=== PATIENT | female | born 1990 | race Two or more races ===

== ENCOUNTER 2023-09-27 16:41 | Emergency (ER) | payer SELFPAY ==
[~2023-09-27] VITALS: Ht 157.5 cm; Wt 52.3 kg
[2023-09-27 16:51] VITALS: TEMP 98
[2023-09-27 16:54] VITALS: BP 110/68; PULSE 115; RESP 18
[2023-09-27 17:13] LABS: BASOPHILS % (AUTO) 0.6 % (0.0-2.0); EOSINOPHILS % (AUTO) 0.6 % (1.0-6.0); HEMATOCRIT 40.5 % (36-46); LYMPHOCYTES # (AUTO) 2.4 K/uL (1.0-4.8); LYMPHOCYTES % (AUTO) 30.7 % (22.0-44.0); MEAN CORPUSCULAR HEMOGLOBIN 26.5 pg (26.0-34.0); MEAN CORPUSCULAR HGB CONC 32.2 G/dL (31.0-37.0); MEAN CORPUSCULAR VOLUME 83 fL (80-100); MONOCYTES # (AUTO) 0.5 K/uL (0.1-1.0); MONOCYTES % (AUTO) 6.7 % (2.0-9.0); NEUTROPHILS # (AUTO) 4.8 K/uL (1.8-7.7); NEUTROPHILS % (AUTO) 61.4 % (40.0-70.0); PLATELET COUNT (AUTO) 375 K/uL (150-450); RED BLOOD CELL COUNT(AUTO) 4.91 MIL/uL (4.00-5.20); RED CELL DISTRIBUTION WIDTH 13.6 % (11.5-14.5); WHITE BLOOD COUNT (AUTO) 7.8 K/uL (4.5-11.0)
[2023-09-27 17:23] LABS: ANION GAP 8 mmol/L (8-16); CALCIUM, TOTAL 9.7 mg/dL (8.8-10.5); CARBON DIOXIDE 28 mmol/L (22-29); CHLORIDE 99 mmol/L (98-107); CREATININE 0.69 mg/dL (0.60-1.30); GLOMERULAR FILTR. RATE CALC > 60 mL/min (>60); GLUCOSE,RANDOM 94 mg/dL (70-110); POTASSIUM 3.6 mmol/L (3.5-5.1); SODIUM SERUM 135 mmol/L (136-145); UREA NITROGEN, BLOOD 10 mg/dL (7-18)
[2023-09-27 17:29] LABS: ALANINE AMINOTRANSFERASE 23 U/L (12-78); ALBUMIN 4.5 g/dL (3.4-5.0); ALKALINE PHOSPHATASE 102 U/L (46-116); ASPARTATE AMINOTRANSFERASE 20 U/L (15-37); BILIRUBIN,TOTAL 0.2 mg/dL (0.1-1.0); TOTAL PROTEIN, SERUM 8.1 g/dL (6.4-8.2)
[2023-09-27 17:43] LABS: ALCOHOL, BLOOD (SERUM) < 3 mg/dL (0-10)
== END 2023-09-27 17:45 | disposition left against medical advice (07) ==
LOC: EMS 16:43
DX: R45.1 Restlessness and agitation (principal); R73.9 Hyperglycemia, unspecified; F15.10 Other stimulant abuse, uncomplicated
CPT/HCPCS: 99283; 80053; 84703; 85025; 36415; G0480

== ENCOUNTER 2023-09-29 10:00 | Inpatient (IN) | payer MEDICAID ==
[~2023-09-29] VITALS: Ht 157.5 cm; Wt 47.6 kg
[2023-09-29 11:07] LABS: COVID AG,FIA SOURCE NPH
[2023-09-29 11:54] LABS: BASOPHILS % (AUTO) 0.6 % (0.0-2.0); EOSINOPHILS % (AUTO) 0.2 % (1.0-6.0); HEMATOCRIT 40.7 % (36-46); HEMOGLOBIN 13.1 g/dL (12.0-16.0); LYMPHOCYTES # (AUTO) 1.8 K/uL (1.0-4.8); LYMPHOCYTES % (AUTO) 22.3 % (22.0-44.0); MEAN CORPUSCULAR HEMOGLOBIN 26.5 pg (26.0-34.0); MEAN CORPUSCULAR HGB CONC 32.1 G/dL (31.0-37.0); MEAN CORPUSCULAR VOLUME 82 fL (80-100); MONOCYTES # (AUTO) 0.5 K/uL (0.1-1.0); MONOCYTES % (AUTO) 5.9 % (2.0-9.0); NEUTROPHILS # (AUTO) 5.7 K/uL (1.8-7.7); PLATELET COUNT (AUTO) 349 K/uL (150-450); RED BLOOD CELL COUNT(AUTO) 4.95 MIL/uL (4.00-5.20); RED CELL DISTRIBUTION WIDTH 13.9 % (11.5-14.5); WHITE BLOOD COUNT (AUTO) 8.1 K/uL (4.5-11.0)
[2023-09-29 12:04] LABS: ANION GAP 8 mmol/L (8-16); CALCIUM, TOTAL 9.6 mg/dL (8.8-10.5); CARBON DIOXIDE 27 mmol/L (22-29); CHLORIDE 101 mmol/L (98-107); CREATININE 0.66 mg/dL (0.60-1.30); GLOMERULAR FILTR. RATE CALC > 60 mL/min (>60); GLUCOSE,RANDOM 75 mg/dL (70-110); POTASSIUM 3.8 mmol/L (3.5-5.1); SODIUM SERUM 136 mmol/L (136-145); UREA NITROGEN, BLOOD 12 mg/dL (7-18)
[2023-09-29 12:05] LABS: ALCOHOL, BLOOD (SERUM) < 3 mg/dL (0-10)
[2023-09-29 12:18] LABS: ALANINE AMINOTRANSFERASE 22 U/L (12-78); ALBUMIN 4.1 g/dL (3.4-5.0); ALKALINE PHOSPHATASE 89 U/L (46-116); ASPARTATE AMINOTRANSFERASE 40 U/L (15-37); BILIRUBIN,TOTAL 0.3 mg/dL (0.1-1.0); HCG,QUANTITATIVE < 1 mIU/mL (0-6); TOTAL PROTEIN, SERUM 7.6 g/dL (6.4-8.2)
[2023-09-29 12:21] LABS: SARS-COV2 (COVID) ANTIGEN,FIA Negative (Negative)
[2023-09-29] MEDS: QUEtiapine FUMARATE 100 MG TABLET PO PRN (13:50)
[2023-09-29] MEDS: LORazepam 2 MG TABLET PO PRN (13:50)
[2023-09-29 14:53] VITALS: BP 116/81; PULSE 107; RESP 18; TEMP 97.8; O2SAT 97
[2023-09-29] MEDS ORDERED: INFLUENZA VIRUS VACCINE QVS 2023-24 (6MO+)/PF 60 MCG/0.5 ML SYRINGE IM. ONE (15:30)
[2023-09-29 21:02] VITALS: BP 121/80; PULSE 98; RESP 18; TEMP 97.9
[2023-09-30] MEDS ORDERED: ONDANSETRON HCL 4 MG TABLET PO PRN (07:15)
[2023-09-30] MEDS ORDERED: MAG HYDROX/ALUMINUM HYD/SIMETH ES 30 ML SUSPENSION UDCUP PO PRN (07:15)
[2023-09-30] MEDS ORDERED: ACETAMINOPHEN 325 MG TABLET PO PRN (07:15)
[2023-09-30] MEDS ORDERED: CloNIDine HCL 0.1 MG TABLET PO PRN (07:15)
[2023-09-30] MEDS ORDERED: PETROLATUM,WHITE 28 GM JELLY TP PRN (07:15)
[2023-09-30] MEDS ORDERED: DOCUSATE SODIUM 100 MG CAPSULE PO PRN (07:15)
[2023-09-30] MEDS ORDERED: IBUPROFEN 400 MG TABLET PO PRN (07:15)
[2023-09-30] MEDS ORDERED: LOPERAMIDE HCL 2 MG CAPSULE PO PRN (07:15)
[2023-09-30] MEDS ORDERED: MAGNESIUM HYDROXIDE SUSPENSION 30 ML UDCUP PO PRN (07:15)
[2023-09-30] MEDS ORDERED: GuaiFENesin/D-METHORPHAN [SUGAR-FREE] 200-20MG/10 ML SYRUP UDCUP PO PRN (07:15)
[2023-09-30] MEDS ORDERED: ALBUTEROL SULFATE HFA 90 MCG/PUFF 8 GM INHALER IH PRN (07:15)
[2023-09-30] MEDS: ARIPiprazole 10 MG TABLET PO SCH (09:51)
[2023-09-30 10:28] VITALS: BP 106/72; PULSE 99; RESP 18; TEMP 98.1; O2SAT 100
[2023-10-01 00:53] VITALS: BP 97/57; PULSE 97; RESP 18; TEMP 98.4; O2SAT 100
[2023-10-01 09:44] LABS: HEMOGLOBIN A1C 5.3 % (3.8-5.6)
[2023-10-01 09:49] LABS: THYROID STIMULATING HORMONE 0.29 uIU/mL (0.36-3.74)
[2023-10-01 10:06] VITALS: BP 101/64; PULSE 90; RESP 18; TEMP 97.9; O2SAT 100
[2023-10-01] MEDS: ZOLPIDEM TARTRATE 10 MG TABLET PO PRN (20:21)
[2023-10-01 21:05] VITALS: BP 101/64; PULSE 95; RESP 16; TEMP 97.5; O2SAT 98
[2023-10-02 08:42] LABS: CHOL/HDL RATIO 2.5 (3.9-5.7)
[2023-10-02] MEDS: NICOTINE 14 MG/24 HOUR PATCH TD PRN (09:29)
[2023-10-02 14:46] VITALS: RESP 16; TEMP 98
[2023-10-02 20:36] VITALS: BP 104/60; PULSE 78; RESP 17; TEMP 97.9; O2SAT 96
[2023-10-03 03:06] LABS: HEPATITIS C AB (EIA) Non Reactive (Non Reactive)
[2023-10-03 08:22] VITALS: BP 101/67; PULSE 100; RESP 16; TEMP 97.6; O2SAT 100
[2023-10-03 23:20] VITALS: RESP 17
[2023-10-04 08:40] VITALS: BP 100/60; PULSE 90; RESP 16; TEMP 98; O2SAT 97
[2023-10-04 09:23] LABS: APPEARANCE,URINE HAZY (CLEAR); BILIRUBIN,URINE NEGATIVE (NEGATIVE); COLOR,URINE LIGHT YELLOW (YELLOW); GLUCOSE, URINE (UA) NEGATIVE (NEGATIVE); KETONES,URINE NEGATIVE (NEGATIVE); LEUKOCYTE ESTERASE ,URINE MODERATE (NEGATIVE); NITRATE,URINE POSITIVE (NEGATIVE); OCCULT BLOOD,URINE NEGATIVE (NEGATIVE); PROTEIN,URINE NEGATIVE (NEGATIVE); SPECIFIC GRAVITIY, URINE 1.011 (1.003-1.030); UROBILINOGEN,URINE <=1.0 mg/dL (<=1.0)
[2023-10-04 09:38] LABS: ALCOHOL, URINE DRUG SCREEN NEGATIVE (NEGATIVE); AMPHET/METH SCREEN,URINE NEGATIVE (NEGATIVE); BARBITURATE SCREEN, URINE NEGATIVE (NEGATIVE); BENZODIAZEPINES SCREEN,URINE NEGATIVE (NEGATIVE); CANNABINOID SCREEN,URINE NEGATIVE (NEGATIVE); COCAINE SCREEN,URINE NEGATIVE (NEGATIVE); METHADONE SCREEN, URINE NEGATIVE (NEGATIVE); OPIATE SCREEN,URINE NEGATIVE (NEGATIVE); PHENCYCLIDINE SCREEN,URINE NEGATIVE (NEGATIVE)
[2023-10-04 09:45] LABS: BACTERIA,URINE Many /HPF (None Seen); RBC,URINE None Seen /HPF (0-2)
[2023-10-04 09:46] LABS: SQUAMOUS EPITHELIAL CELL,UR Moderate /LPF (None Seen)
[2023-10-04] MEDS: CEPHALEXIN MONOHYDRATE 500 MG CAPSULE PO SCH (13:05)
[2023-10-04 20:29] VITALS: BP 96/56; PULSE 88; RESP 18; TEMP 98; O2SAT 97
[2023-10-05 09:11] VITALS: BP 108/68; PULSE 103; RESP 16; TEMP 97.7; O2SAT 100
[2023-10-05] MEDS ORDERED: ARIP10TA8 PO (16:31)
[2023-10-05] MEDS ORDERED: CEPH-558 PO (16:43)
[2023-10-05] MEDS ORDERED: ARIP10TA38 PO (21:39)
== END 2023-10-05 17:15 | disposition home or self-care (01) | DRG 751 ==
LOC: EDUNIT# 10:00 → EMS 10:03 → B3A 12:20
PROVIDERS: ADMIT Psychiatry & Neurology Psychiatry; ATTEND Psychiatry & Neurology Psychiatry
PROC: GZHZZZZ Group Psychotherapy (ICD-10-PCS; principal; 2023-09-30)
DX: F33.3 Major depressive disorder, recurrent, severe with psychotic symptoms (principal); G93.40 Encephalopathy, unspecified; G40.909 Epilepsy, unspecified, not intractable, without status epilepticus; F15.10 Other stimulant abuse, uncomplicated; F43.12 Post-traumatic stress disorder, chronic; G47.00 Insomnia, unspecified; I95.9 Hypotension, unspecified; Z59.00 Homelessness unspecified; Z79.899 Other long term (current) drug therapy; Z20.822 Contact with and (suspected) exposure to COVID-19
CPT/HCPCS: 80053; 80061; 80307; 81001; 83036; 84443; 84702; 85025; 86803; 87086; 87186; 87340; 99285; G0480